=== PATIENT | female | born 1985 | race Hispanic/Latino ===

== ENCOUNTER 2021-01-06 10:27 | Emergency (ER) | payer SELFPAY ==
[~2021-01-06] VITALS: Ht 157.5 cm; Wt 89.4 kg
[2021-01-06] MEDS ORDERED: GLIPIZIDE5 MG PO (11:12)
[2021-01-06] MEDS ORDERED: REMERON30 MG PO (11:12)
[2021-01-06] MEDS ORDERED: CYMBALTA30 MG (11:12)
[2021-01-06] MEDS ORDERED: LUNESTA3 MG (11:12)
[2021-01-06] MEDS ORDERED: METFORMIN HCL500 MG PO (11:12)
[2021-01-06] MEDS ORDERED: ONDANSETRON HCL INJ 2MG/ML 2ML 2 MG/ML VIAL IV STA (11:52)
[2021-01-06] MEDS ORDERED: KETOROLAC TROMETHAMINE 30 MG/ML VIAL IV STA (11:55)
[2021-01-06] MEDS ORDERED: SODIUM CHLORIDE 0.9% 1000ML 1,000 ML IV SCH (12:00)
[2021-01-06] MEDS ORDERED: CEFTRIAXONE SOD 1 GM 50 ML IV ONE ×2 (12:00→12:06)
[2021-01-06] MEDS ORDERED: CEFTRIAXONE SOD 2 GM/100 ML ML IV ONE (12:00)
[2021-01-06] MEDS ORDERED: ONDANSETRON HCL INJ 2MG/ML 2ML 2 MG/ML VIAL ONE ×2 (12:05→12:19)
[2021-01-06] MEDS ORDERED: KETOROLAC TROMETHAMINE 30 MG/ML VIAL ONE (12:06)
[2021-01-06] MEDS ORDERED: SODIUM CHLORIDE 0.9% 1000ML 1,000 ML ONE (12:06)
[2021-01-06] MEDS ORDERED: CEFDINIR300 MG PO (13:55)
[2021-01-06] MEDS ORDERED: ONDANSETRON ODT4 MG PO (13:56)
== END 2021-01-06 14:08 | disposition home or self-care (01) ==
LOC: FSED 11:34
DX: R50.9 Fever, unspecified (principal); J02.0 Streptococcal pharyngitis; E11.65 Type 2 diabetes mellitus with hyperglycemia; R11.2 Nausea with vomiting, unspecified; N39.0 Urinary tract infection, site not specified; D72.829 Elevated white blood cell count, unspecified
CPT/HCPCS: 99283; J0696; J1885; J2405; J7030

== ENCOUNTER 2022-01-25 20:43 | Emergency (ER) | payer SELFPAY ==
[~2022-01-25] VITALS: Ht 157.5 cm; Wt 90.7 kg
[~2022-01-25 20:43] MED LIST: CEFDINIR300 MG PO; CYMBALTA30 MG; GLIPIZIDE5 MG PO; LUNESTA3 MG; METFORMIN HCL500 MG PO; ONDANSETRON ODT4 MG PO; REMERON30 MG PO
[2022-01-25] MEDS ORDERED: PROVENTIL HFA6.7 GM INH (23:34)
[2022-01-25 23:50] VITALS: BP 144/86
== END 2022-01-25 23:50 | disposition home or self-care (01) ==
LOC: FSED 21:04
DX: R05.9 Cough, unspecified (principal); J06.9 Acute upper respiratory infection, unspecified; J98.01 Acute bronchospasm; E11.9 Type 2 diabetes mellitus without complications; Z20.822 Contact with and (suspected) exposure to COVID-19
CPT/HCPCS: 87400; 99282; U0002